=== PATIENT | female | born 1935 | race Caucasian/White ===

== ENCOUNTER 2017-11-12 22:52 | Emergency (ER) | payer MEDICARE ==
[~2017-11-12] VITALS: Ht 167.6 cm; Wt 65.8 kg
--- NOTE | 2017-11-12 23:08 | NUR ---
DR CARMITA FULLER MD AT BEDSIDE FOR MSE.
--- NOTE | 2017-11-12 23:30 | NUR ---
RADIOLOGY AT BEDSIDE FOR XRAY.
[2017-11-12 23:37] LABS: BASOPHILS # (AUTO) 0.1 K/uL (0.0-8.0); BASOPHILS % (AUTO) 1.6 % (0.0-2.0); EOSINOPHILS # (AUTO) 0.1 K/uL (0.0-0.7); HEMATOCRIT 36.1 % (31.2-41.9); HEMOGLOBIN 12.1 g/dL (10.9-14.3); LYMPHOCYTES # (AUTO) 0.6 K/uL (20.0-40.0); LYMPHOCYTES % (AUTO) 9.1 % (20.5-51.5); MEAN CORPUSCULAR HEMOGLOBIN 30.9 uug (24.7-32.8); MEAN CORPUSCULAR HGB CONC 34 g/dL (32.3-35.6); MEAN CORPUSCULAR VOLUME 92.3 fL (75.5-95.3); MONOCYTES # (AUTO) 0.3 K/uL (2.0-10.0); MONOCYTES % (AUTO) 3.5 % (0.0-11.0); NEUTROPHILS % (AUTO) 84.8 % (38.5-71.5); PLATELET COUNT (AUTO) 308 K/uL (179-408); RED BLOOD CELL COUNT(AUTO) 3.91 MIL/uL (3.63-4.92); WHITE BLOOD COUNT (AUTO) 7.1 K/uL (3.8-11.8)
[2017-11-12 23:50] LABS: CARBON DIOXIDE 27 mmol/L (21-32); CHLORIDE 99 mmol/L (98-107); GLUCOSE 133 mg/dL (74-106); UREA NITROGEN, BLOOD 15 mg/dL (7-18)
[2017-11-13 00:07] LABS: ALANINE AMINOTRANSFERASE 34 U/L (14-59); ALKALINE PHOSPHATASE 118 U/L (50-136); ASPARTATE AMINOTRANSFERASE 39 U/L (15-37); BILIRUBIN,DIRECT 0.1 mg/dL (0.0-0.2); BILIRUBIN,TOTAL 0.4 mg/dL (0.2-1.0); TOTAL PROTEIN, SERUM 7.1 g/dL (6.4-8.2)
--- NOTE | 2017-11-13 00:10 | NUR ---
AAOX4. VSS. PT DENIES PALPITATIONS AT THIS TIME. SA02 100% ON 2L O2. PT HAS DAUGHTER AND 2 HOME HEALTH NURSES AT BEDSIDE. AWAITING TEST RESULTS.
--- NOTE | 2017-11-13 00:15 | NUR ---
DR CARMITA FULLER MD AT BEDSIDE FOR RE-EVALUATION
--- NOTE | 2017-11-13 00:42 | NUR ---
Patient discharged to home in stable conditon. Written and verbal after care instructions given. Patient verbalizes understanding of instructions. PT in care of daughter and home health nurse. IV removed, w/ catheter intact. Pressure applied, w/ no bleeding noted at site. Pt denies palpitations at this time, and states she "feels much better". No distress noted.
[2017-11-13 01:53] VITALS: BP 116/74
== END 2017-11-13 01:02 | disposition home or self-care (01) ==
LOC: ER 22:53
DX: I47.1 Supraventricular tachycardia (principal); R00.2 Palpitations; I10 Essential (primary) hypertension; J44.9 Chronic obstructive pulmonary disease, unspecified; E03.9 Hypothyroidism, unspecified; Z88.0 Allergy status to penicillin; Z88.2 Allergy status to sulfonamides
CPT/HCPCS: 36415; 71045; 80048; 80076; 83735; 83880; 84484; 85025; 85730; 93005; 99285; A4663; 70030-TC